=== PATIENT | male | born 1950 | race African-American/Black ===

== ENCOUNTER 2020-12-09 13:37 | Inpatient (IN) | payer MEDICARE ==
[~2020-12-09] VITALS: Ht 182.9 cm; Wt 72.6 kg
[~2020-12-09 13:37] MED LIST: AZOR 5-40 MG TA1 TAB PO; FERROUS SULFAT325 MG PO; FLOMAX0.4 MG PO; PRINIVIL20 MG PO; PROTONIX40 MG PO; TOPROL XL25 MG PO
[2020-12-09 16:42] VITALS: BP 139/95; BMI 21.7
--- NOTE | 2020-12-09 19:30 | NUR ---
AWAKE AND ALERT. RESTING IN BED WITH RESPRIATIONS UNLABORED. NO DISTRESS NOTED. CALL LIGHT IN REACH.
[2020-12-09 19:33] VITALS: BP 139/95
--- NOTE | 2020-12-10 05:07 | NUR ---
QUIET HOURS. NO ACUTE CHANGES IN CONDITION THIS SHIFT. RESTING IN BED WITH NO DISTRESS NOTED. CALL LIGHT IN REACH.
[2020-12-10 07:40] VITALS: BP 124/82
[2020-12-10 14:03] VITALS: BMI 21.7
--- NOTE | 2020-12-10 16:36 | RHP ---
PATIENT: GILES RAMOS MEDICAL RECORD: [id number] ACCOUNT: [id number] LOCATION:[id number] : 46 ADMISSION DATE: 12/09/20 REHABILITATION HISTORY AND PHYSICAL EXAMINATION POST ADMISSION PHYSICIAN EXAMINATION ADMITTING DIAGNOSIS: Toxic myopathy. HISTORY OF PRESENT ILLNESS: The patient is a gentleman who is admitted with toxic myopathy, acute, secondary to chemotherapy for relapse of prostate cancer. He is a 70-year-old gentleman resides at home with his niece, moved here from [place] to take care of him 2 years ago. He has been in remission until about 2 months ago and they had a relapse. He has been undergoing chemotherapy, both oral and injectable. Over the past month, he has become weaker and weaker to the point that he cannot stand on his own. He is independent with ADLs and he has been having problems with some incontinence of urine at times, problems bathing, problems getting up and around. He has had some incontinence since his stroke in 1980 that has worsened over time. He has got proximal muscle weakness, right greater than left. He has got some problems with his right foot, which externally rotates. His blood pressure has not been well controlled during his stay. He states that maybe some of these medications have been stopped secondary to chemotherapy and not restarted. They just increased his losartan. They have been monitoring this closely. He will need both physical and occupational therapy. Initial labs will be drawn. He is a high fall risk. He has fallen 4 times the last 2 months. He will need dietary supplementation and monitor his pain control, decreased activity tolerance, decreased strength, proximal muscle weakness, balance deficits, decreased range of motion, gait disturbance and high fall risk. These are all barriers to his discharge home. He will require all this therapy along with physician and nursing management to get back to his prior level of functioning. COMORBIDITIES: Include BPH, chronic anemia, chronic back pain, chronic pain, debility, decreased mobility, decreasing physical functioning, decrease in walking, right-sided weakness, safety, urinary incontinence, urinary retention. PAST MEDICAL HISTORY: Significant for CVA, hypertension, iron-deficiency anemia, prostate cancer, kidney mass, weight loss, spastic bladder, BPH, urinary retention, gastroesophageal reflux disease. PAST SURGICAL HISTORY: Includes a TURP. He has had a left nephrectomy and back surgery. ALLERGIES: SULFA. CURRENT MEDICATIONS: Include Procardia 30 mg daily, he is on Zyloprim 100 mg daily, he is on losartan 100 mg daily, atorvastatin 40 mg daily, Protonix 40 mg daily. He is on Xtandi, which is his own medication for chemotherapy. He is on [place] 1 tab every 4 to 6 hours p.r.n. pain and MiraLax. HABITS: No alcohol or tobacco use. FAMILY HISTORY: Noncontributory. SOCIAL HISTORY: The patient hopes to return back home and get back to his prior level of functioning. HISTORY AND PHYSICAL [id number] GILES RAMOS REVIEW OF SYSTEMS: GENERAL: He does complain of weakness and fatigue. HEENT: Denies cold, cough or congestion. CARDIOVASCULAR: Denies any chest pain. PHYSICAL EXAMINATION: VITAL SIGNS: Stable, afebrile. GENERAL: An elderly gentleman in no acute distress upon exam. HEENT: Normocephalic and atraumatic. Mucosa moist. NECK: Supple with no lymphadenopathy. LUNGS: Clear at this time. No wheezing or rales. HEART: Regular rate and rhythm. No murmurs, rubs or gallops. ABDOMEN: Soft, benign, nondistended. Positive bowel sounds times 4. EXTREMITIES: No clubbing, cyanosis or edema. NEUROLOGIC: He does have diffuse weakness. LABORATORY DATA: Pending at this time. ASSESSMENT: This is a 70-year-old gentleman admitted to the rehab with a working diagnosis of toxic myopathy. The patient has potential to make improvement. We instituted the following multidisciplinary therapies including, not limited to physical, occupational, respiratory, speech, nutritional services, prosthetics and orthotics. Given his complex medical condition and risks for more complications, rehabilitation services cannot be provided at a low level of care such as senior care facility. PLAN: 1. Admit to [facility] for inpatient therapy to include the following disciplines; A. Physical therapy to improve gait, all transfer skills and bed mobility to a modified independent level. B. Occupational therapy to improve activities of daily living. C. Case management to help with discharge planning and placement options. D. Nutrition to assist with nutritional needs. E. Rehabilitation nursing to assist in monitoring the patient's underlying medical condition and to assist with any type of bowel or bladder management. 2. The patient's current medication and Medicare will be continued. 3. Placed on standard fall precautions. 4. The patient's estimated length of stay is approximately 7-10 days. 5. Discuss this patient during care team staff meeting tomorrow. We will be waiting on his initial lab work and we will treat any abnormalities as indicated. TRANSINT:[id number] Voice Confirmation ID: [id number] DOCUMENT ID: [id number] MARYANN notes whether there has been none or any medical/functional change since admission: - MARYANN attests patient continues to be appropriate for IRF: - HISTORY AND PHYSICAL [id number] GILES RAMOS,RENEE HATCH MD at 1636 CC: [id number] DICTATION DATE: 12/10/20 1509 NEW ACCOUNTS CLERK: 12/10/20 1546 ADM IN [place] [id number] [place] [id number]
[2020-12-10 20:32] VITALS: BP 143/65
--- NOTE | 2020-12-11 01:56 | NUR ---
RECIEVED PATIENT IN BED, ALERT AND ORIENTED, WATCHING TV, CALL LIGHT IN REACH, SIDERAILS UP X 2 , BED IN LOW POSITION AND LOCKED, NO DISTRESS NOTED, NO DISTRESS NOTED.
[2020-12-11 08:05] VITALS: BP 130/90
--- NOTE | 2020-12-11 16:19 | NUR ---
CARE TEAM MEETING: PATIENT IS NEW TO UNIT AND WILL BE RA AT NEXT MEETING.DR. CHOWDARY IS HIS PCP. AT DISCHARGE PATIENT WILL NEED A HOSPITAL BED WITH TRAPEZE, GRAB BARS, HAND HELD SHOWER , SHOWER CHAIR , A POWER WHEELCHAIR, INCONT. SUPPLIES , BRIEFS, WIPES AND GLOVES ORDER FROM [facility]. WILL CONTINUE TO FOLLOW WITH PATIENT.
--- NOTE | 2020-12-11 18:50 | NUR ---
BEDSIDE REPORT COMPLETE. RECEIVED PT LYING IN BED. ALERT AND ORIENTED X4. DENIES ANY NEEDS OR PAIN. NO DISTRESS NOTED. NO IV OR OXYGEN NOTED. CALL LIGHT AND URINAL WITHIN REACH. FALL PRECAUTIONS IN PLACE. ALEXANDER AND BED ALARM ON. CPOC
[2020-12-11 19:30] VITALS: BP 163/86
[2020-12-11 20:40] VITALS: BP 168/86
--- NOTE | 2020-12-12 00:37 | NUR ---
PT LYING IN BED EYES CLOSED RESTING. RR EVEN AND UNLABORED. EMPTIED 200ML YELLOW URINE FROM URINAL. CALL LIGHT AND URINAL WITHIN REACH. BED ALARM ON.
--- NOTE | 2020-12-12 04:23 | NUR ---
PT LYING IN BED ON RIGHT SIDE EYES CLOSED RESTING. RR EVEN AND UNLABORED. URINAL EMPTIED 300ML CLEAR YELLOW URINE. BED ALARM ON
[2020-12-12 07:56] VITALS: BP 125/82
--- NOTE | 2020-12-12 08:00 | NUR ---
PT RESTING IN BED WITH EYES OPEN CALL LIGHT IN REACH WILL MONITER
--- NOTE | 2020-12-12 18:25 | NUR ---
PT RESTING IN BED WITH EYES OPEN CALL LIGHT IN REACH WILL MONITER
--- NOTE | 2020-12-12 18:40 | NUR ---
BEDSIDE REPORT COMPLETE. RECEIVED PT SITTING UP IN BED. ALERT AND ORIENTED X3. DENIES ANY NEEDS OR PAIN. NO DISTRESS NOTED. CALL LIGHT AND WATER WITHIN REACH. URINAL AT BEDSIDE. ALEXANDER ALARM ON. CPOC
[2020-12-12 21:43] VITALS: BP 122/58
--- NOTE | 2020-12-13 01:55 | NUR ---
PT LYING IN BED ON LEFT SIDE EYES CLOSED RESTING. RR EVEN AND UNLABORED. CALL LIGHT WITHIN REACH. ALEXANDER ALARM ON
--- NOTE | 2020-12-13 07:25 | NUR ---
PT IN THERAPY GYM PARTICIPATING WITH MARY KATE FOR PHYSICAL THERAPY. DENIES ANY NEEDS OR PAIN. NO DISTRESS NOTED.
[2020-12-13 07:48] VITALS: BP 111/83
--- NOTE | 2020-12-13 08:00 | NUR ---
PT RESTING IN BED WITH EYES OPEN CALL LIGHT IN REACH WILL MONITER
[2020-12-13 08:10] LABS: BASOPHILS 0.2 % (0-2); EOSINOPHILS 6.2 % (0-7); HEMATOCRIT 35.1 % (42.0-54.0); HEMOGLOBIN 11.3 g/dL (13.5-17.5); IMMATURE GRANULOCYTES 0.2 % (0-5); LYMPHOCYTE ABS# 2.34 10x3/uL (1.32-3.57); MCH 23.6 pg (26.0-34.0); MCHC 32.2 g/dL (31.0-37.0); MCV 73.3 fL (80.0-100.0); MONOCYTES 7.6 % (2-11); NEUTROPHILS 48.8 % (40-80); PLATELET COUNT 227 10x3/uL (130-400); RBC 4.79 10x6/uL (4.20-6.10); RDW 17.2 % (11.5-14.5); WBC 6.3 10x3/uL (4.8-10.8)
[2020-12-13 08:33] LABS: ANION GAP 18.4 mmol/L (8-16); CALCIUM 9.2 mg/dL (8.5-10.1); CARBON DIOXIDE 18.6 mmol/L (21.0-32.0); CREATININE - SERUM 2.3 mg/dL (0.6-1.3)
--- NOTE | 2020-12-13 12:25 | NUR ---
Nutrition follow-up: Diet: Regular Dental Soft/Chopped meats PO intake: 75% Last BM: none recorded since admit Wt: 160# (12/10/20) Meds reviewed Labs noted: BUN 42(H), Cr 2.3(H), GFR 36(L), Glu 120(H) Recommend continue current diet/or per GREASE REFINER OPERATOR recommendations. RD will follow-up 12/18/20.
--- NOTE | 2020-12-13 14:16 | NUR ---
I have reviewed this patient and I concur with the Shift Assessment completed by the Licensed Practical Nurse today this shift.
--- NOTE | 2020-12-13 19:20 | NUR ---
AWAKE AND ALERT. RESTING IN BED WITH RESPIRAITONS UNLABORED. NO DISTRESS NOTED. CALL LIGHT IN REACH.
[2020-12-13 19:34] VITALS: BP 126/81
--- NOTE | 2020-12-14 06:22 | NUR ---
QUIET HOURS. NO ACUTE CHANGES IN CONDITION THIS SHIFT. NO DISTRESS NOTED. CALL LIGHT IN REACH.
[2020-12-14 07:00] VITALS: BP 137/90
--- NOTE | 2020-12-14 08:00 | NUR ---
SHIFT ASSMT COMPLETED.CL IN REACH
--- NOTE | 2020-12-14 12:00 | NUR ---
EATING LUNCH ON SIDE OF BED.
[2020-12-14 19:25] VITALS: BP 122/71
--- NOTE | 2020-12-14 19:28 | NUR ---
AWAKE AND ALERT. RESTING IN BED WITH RESPIRATIONS UNLABORED. C/I DIARRHEA AND REQUEST SOMETHING TO STOP IT. WILL FOLLOW UP. NO ACUTE DISTRESS NOTED. CALL LIGHT IN REACH.
--- NOTE | 2020-12-15 05:09 | NUR ---
QUIET HOURS. NO ACUTE CHANGES IN CONDITION THIS SHIFT. RESTING IN BED WITH NO DISTRESS NOTED.
[2020-12-15 08:00] VITALS: BP 155/101
[2020-12-15 19:00] VITALS: BP 132/84
--- NOTE | 2020-12-15 19:41 | NUR ---
AWAKE AND ALERT. RESTING IN BED WITH RESIRATIONS UNLABORED. NO ACUTE DISTRESS NOTED. CALL LIGHT IN REACH.
--- NOTE | 2020-12-16 06:22 | NUR ---
QUIET HOURS. NO ACUTE CHANGES IN CONDITION THIS SHIFT. RESTING IN BED WITH NO DISTRESS NOTED.
[2020-12-16 08:30] VITALS: BP 133/91
[2020-12-16 10:33] LABS: BASOPHILS 0.1 % (0-2); EOSINOPHILS 6.1 % (0-7); HEMOGLOBIN 10.7 g/dL (13.5-17.5); IMMATURE GRANULOCYTES 0.1 % (0-5); LYMPHOCYTE ABS# 2.35 10x3/uL (1.32-3.57); LYMPHOCYTES 34.9 % (15-50); MCH 23.6 pg (26.0-34.0); MCHC 32.4 g/dL (31.0-37.0); MCV 72.8 fL (80.0-100.0); MONOCYTES 7.9 % (2-11); NEUTROPHIL ABS# 3.43 10x3/uL (1.78-5.38); NEUTROPHILS 50.9 % (40-80); PLATELET COUNT 248 10x3/uL (130-400); RBC 4.53 10x6/uL (4.20-6.10); RDW 17.3 % (11.5-14.5); WBC 6.7 10x3/uL (4.8-10.8)
[2020-12-16 10:44] LABS: ANION GAP 17.1 mmol/L (8-16); CALCIUM 9.1 mg/dL (8.5-10.1); CARBON DIOXIDE 20.6 mmol/L (21.0-32.0); CREATININE - SERUM 2.4 mg/dL (0.6-1.3); POTASSIUM - SERUM 5.7 mmol/L (3.5-5.1)
--- NOTE | 2020-12-16 13:27 | NUR ---
SITTING UP IN WC IN ROOM WATCHING TV. DENIES PAIN OR NEEDS. POOR BALANCE NOTED. IS INCONT OF URINE. CALL LIGHT IN REACH
--- NOTE | 2020-12-16 18:49 | NUR ---
BEDSIDE REPORT COMPLETE. RECEIVED PT LYING IN BED. ALERT AND ORIENTED X4. DENIES ANY NEEDS OR PAIN. NO DISTRESS NOTED. NO IV OR OXYGEN. CALL LIGHT AND WATER WITHIN REACH. ALEXANDER ALARM ON. CPOC
[2020-12-16 21:25] VITALS: BP 168/84
--- NOTE | 2020-12-17 00:42 | NUR ---
PT LYING IN BED ON RIGHT SIDE EYES CLOSED RESTING. RR EVEN AND UNLABORED. ALEXANDER ALARM ON
--- NOTE | 2020-12-17 04:04 | NUR ---
PT LYING IN BED AWAKE. DENIES ANY NEEDS OR PAIN. 200ML URINE EMPTIED FROM URINAL. PT IS CLEAN AND DRY. ALEXANDER ALARM ON
[2020-12-17 07:46] VITALS: BP 118/82
--- NOTE | 2020-12-17 10:53 | NUR ---
PATIENT IS A CLIENT OF NAE AT HOME.
--- NOTE | 2020-12-17 18:45 | NUR ---
BEDSIDE REPORT COMPLETE. RECEIVED PT SITTING UP IN BED. ALERT AND ORIENTED X4. DENIES ANY NEEDS OR PAIN. NO DISTRESS NOTED. CALL LIGHT AND URINAL WITHIN REACH. ALEXANDER ALARM ON. CPOC
[2020-12-17 20:28] VITALS: BP 146/83
--- NOTE | 2020-12-18 02:13 | NUR ---
PT LYING IN BED EYES CLOSED RESTING. RR EVEN AND UNLABORED. ALEXANDER ALARM ON
--- NOTE | 2020-12-18 06:24 | NUR ---
PT WALKING IN HALLS WITH MARY KATE. NO DISTRESS NOTED. DENIES ANY NEEDS OR PAIN.
[2020-12-18 07:38] VITALS: BP 121/79
--- NOTE | 2020-12-18 08:00 | NUR ---
SHIFT ASSMT COMPLETED
[2020-12-18 08:11] LABS: BASOPHILS 0.1 % (0-2); EOSINOPHILS 6.1 % (0-7); HEMOGLOBIN 11.3 g/dL (13.5-17.5); IMMATURE GRANULOCYTES 0.1 % (0-5); LYMPHOCYTE ABS# 3.01 10x3/uL (1.32-3.57); LYMPHOCYTES 43.4 % (15-50); MCH 23.6 pg (26.0-34.0); MCHC 31.4 g/dL (31.0-37.0); MCV 75.2 fL (80.0-100.0); MONOCYTES 8.2 % (2-11); NEUTROPHIL ABS# 2.92 10x3/uL (1.78-5.38); NEUTROPHILS 42.1 % (40-80); PLATELET COUNT 202 10x3/uL (130-400); RBC 4.79 10x6/uL (4.20-6.10); RDW 17.7 % (11.5-14.5); WBC 6.9 10x3/uL (4.8-10.8)
[2020-12-18 08:14] LABS: ANION GAP 20.1 mmol/L (8-16); CALCIUM 9.3 mg/dL (8.5-10.1); CARBON DIOXIDE 16.9 mmol/L (21.0-32.0); CREATININE - SERUM 2.1 mg/dL (0.6-1.3)
--- NOTE | 2020-12-18 14:04 | NUR ---
Nutrition Re-Assessment Diet: Regular Dental Soft/Chopped Meats PO intake: 75-100% x 9 meals; reports good appetite Last BM: 12/18/20 Wt: 160# (12/10/20) Meds noted: veltassa Labs noted: K 6.0(H), BUN 44(H), Cr 2.1(H), GFR 40(L) Estimated nutrition needs: [id number] cheryl (25-30 IBW), 44-58gms protein (0.6-0.8), 2025-2425mL fluid (or per MD) Nutrition diagnosis: Altered nutrition related lab values r/t kidney dysfunction AEB K 6.0, BUN 44, Cr 2.1, and GFR 40. Nutrition Goals: -PO intake =/>75% meals -Dry weight stable DHS -Potassium to trend WNL Recommendations/Interventions: -Will change diet to low potassium. -Recommend MD to draw PO4 labs. If PO4 elevated will change to Renal diet. -Will continue to honor food preferences within diet restrictions. -RD will follow-up 12/23/20.
--- NOTE | 2020-12-18 16:09 | NUR ---
CARE TEAM MEETING: PATIENT IS PROGRESSING IN THERAPY. HIS TENATIVE DC DATE IS 12/24/20. DISCHARGE PLANS ARE FOR HIM TO RETURN TO HIS HOME. WILL CONTINUE TO FOLLOW WITH PATIENT.
[2020-12-18 20:30] VITALS: BP 142/77
--- NOTE | 2020-12-18 23:31 | NUR ---
PT IN BED, NO IMMEDIATE NEEDS NOTED, FLUIDS/CL WITHIN REACH, PRECAUTIONS IN PLACE
[2020-12-19 07:45] LABS: CALCIUM 9.5 mg/dL (8.5-10.1); CARBON DIOXIDE 21.4 mmol/L (21.0-32.0); CREATININE - SERUM 2.3 mg/dL (0.6-1.3)
[2020-12-19 07:46] LABS: POTASSIUM - SERUM 6.4 mmol/L (3.5-5.1)
[2020-12-19 08:14] VITALS: BP 144/90
--- NOTE | 2020-12-19 19:30 | NUR ---
RECEIVED PATIENT SITTING IN THE WHEELCHAIR IN HIS ROOM. ALERT AND ORIENTED X4. RLE ELEVATED AND DRESSING CDI. RATES PAIN A 7/10 TO RIGHT FOOT/LEG. CALM AND COOPERAIVE. ASSISTED TO BATHROOM AND PATIENT TRANSFERRED SELF TO TOILET. DENIES NEEDS AT THIS TIME.
--- NOTE | 2020-12-19 19:40 | NUR ---
ASSISTED PATIENT BACK TO WHEELCHAIR AND THEN TO BED. HAD BM. RELATED HE WOULD LIKE HIS PERCOCET 10 AND VISTARIL 50MG WITH HIS HS MEDS BUT DOES NOT WANT THE TRAZADONE BECAUSE THE PAIN MEDICATION WILL HELP HIM SLEEP.
--- NOTE | 2020-12-19 20:17 | NUR ---
HS MEDS ADMINISTERED WITHOUT DIFFICULTY. CURRENTLY RATES PAIN 6/10 SINCE LYING DOWN. CALL LIGHT WITHIN REACH. TALKING ON THE TELEPHONE AND DENIES NEEDS.
[2020-12-19 20:36] VITALS: BP 136/73
--- NOTE | 2020-12-19 21:06 | NUR ---
HS MEDS ADMINISTERED WITHOUT DIFFICULTY. NO C/O VOICED. CL WITHIN REACH.
--- NOTE | 2020-12-19 21:20 | NUR ---
PAIN MEDICATION EFFECTIVE. CURRENTLY RATES PAIN 3/10.
--- NOTE | 2020-12-19 22:56 | NUR ---
RECEIVED PATIENT LYING IN BED. ALERT AND ORIENTED TO PERSON, SITUATION AMD PARTIAL TIME. REPORTS REASON FOR HOSPITALIZATION IS DUE TO FALLING. DENIES PAIN. CALL LIGHT WITHIN REACH. DENIES NEEDS.
--- NOTE | 2020-12-19 23:03 | NUR ---
PT REQUESTED A BANANA. INFORMED PATIENT NO BANANAS ON THE UNIT. VANILLA ICE CREAM TAKEN TO PATIENT. DENIES FURTHER NEEDS. CL WITHIN REACH.
[2020-12-20 08:04] LABS: BASOPHILS 0.1 % (0-2); EOSINOPHILS 7.2 % (0-7); HEMATOCRIT 33.5 % (42.0-54.0); HEMOGLOBIN 10.9 g/dL (13.5-17.5); IMMATURE GRANULOCYTES 0.1 % (0-5); LYMPHOCYTE ABS# 3.07 10x3/uL (1.32-3.57); MCH 23.8 pg (26.0-34.0); MCHC 32.5 g/dL (31.0-37.0); MCV 73.1 fL (80.0-100.0); MONOCYTES 7.9 % (2-11); NEUTROPHIL ABS# 2.84 10x3/uL (1.78-5.38); NEUTROPHILS 40.7 % (40-80); RBC 4.58 10x6/uL (4.20-6.10); RDW 17.3 % (11.5-14.5)
[2020-12-20 08:05] LABS: PLATELET COUNT 262 10x3/uL (130-400)
[2020-12-20 08:10] LABS: ANION GAP 15.7 mmol/L (8-16); CALCIUM 9.6 mg/dL (8.5-10.1); CARBON DIOXIDE 20.7 mmol/L (21.0-32.0); CREATININE - SERUM 2.5 mg/dL (0.6-1.3)
[2020-12-20 08:11] VITALS: BP 128/74
[2020-12-20 08:12] LABS: POTASSIUM - SERUM 5.4 mmol/L (3.5-5.1)
--- NOTE | 2020-12-20 13:21 | NUR ---
SITTING UP IN WC IN ROOM. ALERT AND ORIENTED WITH SOFT SPEECH. DENIES PAIN. POOR BALANCE NOTED. INCONT OF URINE, WEARS BRIEFS. CALL LIGHT IN REACH
[2020-12-20 13:29] VITALS: Ht 182.9 cm; Wt 72.6 kg
--- NOTE | 2020-12-20 18:53 | NUR ---
BEDSIDE REPORT COMPLETE. RECEIVED PT LYING IN BED. ALERT AND ORIENTED X4. DENIES ANY NEEDS OR PAIN. CALL LIGHT AND WATER WITHIN REACH. ALEXANDER ALARM ON. CPOC
[2020-12-20 21:20] VITALS: BP 145/88
--- NOTE | 2020-12-21 03:16 | NUR ---
PT LYING IN BED ON RIGHT SIDE EYES CLOSED RESTING. RR EVEN AND UNLABORED. CALL LIGHT WITHIN REACH. ALEXANDER ALARM ON.
--- NOTE | 2020-12-21 05:36 | NUR ---
PT LYING IN BED ON RIGHT SIDE EYES CLOSED RESTING. RR EVEN AND UNLABORED. NO ACUTE CHANGES IN CONDITION THIS SHIFT. CALL LIGHT AND URINAL WITHIN REACH. ALEXANDER ALARM ON.
[2020-12-21 08:00] VITALS: BP 131/84
[2020-12-21 08:11] LABS: ANION GAP 16.6 mmol/L (8-16); CALCIUM 9.3 mg/dL (8.5-10.1); CARBON DIOXIDE 21.1 mmol/L (21.0-32.0); CREATININE - SERUM 2.3 mg/dL (0.6-1.3); POTASSIUM - SERUM 5.7 mmol/L (3.5-5.1)
--- NOTE | 2020-12-21 10:50 | NUR ---
SITTING IN WC IN ROOM. HAS BEEN UP SINCE BREAKFAST TALKING WITH STAFF AND MILLING AROUND IN WC. DENIES PAIN OR SOB. INCONT OF URINE. CALL LIGHT IN REACH
--- NOTE | 2020-12-21 18:42 | NUR ---
BEDSIDE REPORT COMPLETE. RECEIVED PT LYING IN BED. ALERT AND ORIENTED X3. DENIES ANY NEEDS OR PAIN. NO DISTRESS NOTED. CALL LIGHT AND WATER WITHIN REACH. ALEXANDER ALARM ON. CPOC
[2020-12-21 19:00] VITALS: BP 128/68
--- NOTE | 2020-12-22 01:45 | NUR ---
PT LYING IN BED EYES CLOSED RESTING. RR EVEN AND UNLABORED. CALL LIGHT WITHIN REACH. ALEXANDER ALARM ON
--- NOTE | 2020-12-22 05:17 | NUR ---
PT LYING IN BED AWAKE. DENIES ANY NEEDS OR PAIN. NO DISTRESS NOTED. EARLY AM MEDS ADMININSTERED WITHOUT DIFFICULTY. NO ACUTE CHANGES IN CONDITION THIS SHIFT. CALL LIGHT AND WATER WITHIN REACH. ALEXANDER ALARM ON
[2020-12-22 08:00] VITALS: BP 127/77
--- NOTE | 2020-12-22 10:17 | NUR ---
SITTING UP IN WC IN ROOM WATCHING TV. INCONT OF URINE. WEARS BRIEFS. CONT OF BOWEL. DENIES PAIN. BED AND CHAIR ALARM IN PLACE. CALL LIGHT IN REACH
[2020-12-22 19:00] VITALS: BP 132/82
--- NOTE | 2020-12-22 23:55 | NUR ---
PT LYING IN BED SUPINE EYES OPEN. NO DISTRESS NOTED. DENIES ANY NEEDS. CALL LIGHT WITHIN REACH. ALEXANDER ALARM ON
--- NOTE | 2020-12-23 03:30 | NUR ---
PT CALLED REQUESTING SHOWER. ASSISTED PT WITH SHOWER MIN ASSIST. PT WAS ABLE TO WASH ALL BODY PARTS EXCEPT BACK. ASSISTED WITH LOWER BODY DRESSING. COMPLETE BED LINEN CHANGE. NO OTHER NEEDS VOICED. CALL LIGHT WITHIN REACH. ALEXANDER ALARM ON.
[2020-12-23 07:57] VITALS: BP 117/75
[2020-12-23 08:19] LABS: BASOPHILS 0.1 % (0-2); EOSINOPHILS 6.6 % (0-7); HEMATOCRIT 33.7 % (42.0-54.0); HEMOGLOBIN 10.8 g/dL (13.5-17.5); IMMATURE GRANULOCYTES 0.3 % (0-5); LYMPHOCYTES 42.6 % (15-50); MCH 23.3 pg (26.0-34.0); MCV 72.8 fL (80.0-100.0); MONOCYTES 7.3 % (2-11); NEUTROPHIL ABS# 3.13 10x3/uL (1.78-5.38); NEUTROPHILS 43.1 % (40-80); PLATELET COUNT 242 10x3/uL (130-400); RBC 4.63 10x6/uL (4.20-6.10); RDW 17.4 % (11.5-14.5); WBC 7.3 10x3/uL (4.8-10.8)
[2020-12-23 08:26] LABS: ANION GAP 17.9 mmol/L (8-16); CALCIUM 9.7 mg/dL (8.5-10.1); CARBON DIOXIDE 19.2 mmol/L (21.0-32.0); CREATININE - SERUM 2.5 mg/dL (0.6-1.3); POTASSIUM - SERUM 5.1 mmol/L (3.5-5.1)
[2020-12-23] MEDS ORDERED: SODIUM BICARBO325 MG PO (08:34)
[2020-12-23] MEDS ORDERED: VELTASSA8.4 GM PO (08:34)
[2020-12-23] MEDS ORDERED: Procardia XL PO (08:34)
[2020-12-23] MEDS ORDERED: ZYLOPRIM100 MG PO (08:34)
--- NOTE | 2020-12-23 19:40 | NUR ---
AWAKE AND ALERT. RESTING IN BED WITH RESPIRATIONS UNLABORED. NO DISTRESS NOTED. CALL LIGHT IN REACH.
[2020-12-23 19:58] VITALS: BP 130/81
--- NOTE | 2020-12-24 05:27 | NUR ---
QUIET HOURS. NO ACUTE CHANGES IN CONDITION THIS SHIFT. RESTING IN BED WITH NO DISTRESS NOTED.
[2020-12-24 07:34] VITALS: BP 122/84
--- NOTE | 2020-12-24 08:00 | NUR ---
SHIFT ASSMT COMPLETED.CL IN REACH.
--- NOTE | 2020-12-24 08:53 | NUR ---
Nutrition Follow-up: Diet: 75% most meals Last BM: 12/19/20 Wt: 160# (12/10/20) Meds reviewed Labs noted: K 5.1(WNL), BUN 52(H), Cr 2.5(H), GFR 33(L) Recommend contiue current diet. RD will follow-up within 7 days.
--- NOTE | 2020-12-24 10:42 | NUR ---
PATIENT DISCHARGED HOME TODAY WITH FAMILY. [facility] AT HOME WILL RESUME THERAPY AT HOME. DAUGHTER HAS ARRANGED FOR DME TO BE DELIVERED. DR. COLEMAN 12/31/20 @ 1:00, DR. GRAVES 01/08/21 @ 2:10. PATRICIA SIGNED, IMM SERVED ANEND EXPLAINED, ONE GIVEN TO PATIENT AND ONE FILED IN CHART.NO COMPARE DATA REVIEWED. DISCHARGE INSTUCTIONS FAXED TO PCP, HOME HEALTH AND REVIEWED WITH PATIENT AND DAUGHTER.
--- NOTE | 2020-12-24 12:00 | NUR ---
EATING LUNCH.WAITING ON RIDE.DISCHARGING TODAY.REVIEWED MEDS AND APPTS.
--- NOTE | 2020-12-24 13:05 | NUR ---
DISCHARGED TO HOME.
== END 2020-12-24 13:05 | disposition home health service (06) | DRG 92 ==
LOC: D.REHAB 13:37
PROVIDERS: Internal Medicine Nephrology; ADMIT Emergency Medicine; ATTEND Emergency Medicine
DX: G72.2 Myopathy due to other toxic agents (principal); N18.4 Chronic kidney disease, stage 4 (severe); N40.0 Benign prostatic hyperplasia without lower urinary tract symptoms; D64.9 Anemia, unspecified; M54.5 Low back pain; G89.29 Other chronic pain; R53.81 Other malaise; R32 Unspecified urinary incontinence; R33.9 Retention of urine, unspecified; Z85.46 Personal history of malignant neoplasm of prostate; K21.9 Gastro-esophageal reflux disease without esophagitis; R26.2 Difficulty in walking, not elsewhere classified; R53.83 Other fatigue; I12.9 Hypertensive chronic kidney disease with stage 1 through stage 4 chronic kidney disease, or unspecified chronic kidney disease

== ENCOUNTER 2021-02-10 11:22 | Inpatient (IN) | payer MEDICARE ==
[~2021-02-10] VITALS: Ht 182.9 cm; Wt 70.8 kg
[~2021-02-10 11:22] MED LIST changes: +Procardia XL PO; +SODIUM BICARBO325 MG PO; +VELTASSA8.4 GM PO; +ZYLOPRIM100 MG PO
[2021-02-10 12:38] LABS: ANION GAP 20.2 mmol/L (8-16); CALCIUM 9.5 mg/dL (8.5-10.1); CARBON DIOXIDE 17.9 mmol/L (21.0-32.0); CREATININE - SERUM 4.3 mg/dL (0.6-1.3); POTASSIUM - SERUM 5.1 mmol/L (3.5-5.1)
[2021-02-10 12:41] LABS: ALBUMIN 3.1 g/dL (3.4-5.0); BILIRUBIN - TOTAL 0.78 mg/dL (0.2-1.3); PROTEIN - SERUM 7.9 g/dL (6.4-8.2)
[2021-02-10 12:58] LABS: BASOPHILS 0.1 % (0-2); EOSINOPHILS 0.2 % (0-7); HEMATOCRIT 35.7 % (42.0-54.0); HEMOGLOBIN 10.7 g/dL (13.5-17.5); LYMPHOCYTES 10.6 % (15-50); MCH 23.6 pg (26.0-34.0); MCHC 30.1 g/dL (31.0-37.0); MCV 78.5 fL (80.0-100.0); MEAN PLATELET VOLUME 9.2 fL (7.4-10.4); MONOCYTES 7.7 % (2-11); NEUTROPHILS 81.4 % (40-80); RBC 4.55 10x6/uL (4.20-6.10); RDW 17.2 % (11.5-14.5); WBC 17.6 10x3/uL (4.8-10.8)
[2021-02-10 13:03] LABS: PLATELET COUNT 154 10x3/uL (130-400)
[2021-02-10 15:47] LABS: BILIRUBIN NEGATIVE (NEGATIVE); KETONE NEGATIVE mg/dL (< 1+); NITRITE NEGATIVE (NEGATIVE); PH 5.5 (5.0-8.0); UROBILINOGEN NORMAL mg/dL (< 2)
[2021-02-10 16:09] LABS: WHITE CELLS - URINE >50 HPF (0-1)
[2021-02-10 16:10] LABS: BACTERIA MANY HPF (<MOD)
[2021-02-10 18:54] LABS: SARS-CoV-2 ANTIGEN NEGATIVE- SARS-COV-2 (NEGATIVE)
[2021-02-10 19:53] VITALS: BP 147/91
[2021-02-10] MEDS ORDERED: HYDROCODON-ACE1 EAC7 PO (21:35)
--- NOTE | 2021-02-10 23:17 | NUR ---
REPORT RECEIVED. PT A&O, UP IN BED. NO S/S OF DISTRESS OBSERVED. RR EVEN & UNLABORED ON RA. L AC SL AT THIS TIME. BED LOCKED AND LOWERED, CL IN REACH. SPOKE WITH ARUN (NIECE) WHO IS THE PRIMARY CAREGIVER. WILL CONT POC.
[2021-02-11 02:21] VITALS: BP 148/93
[2021-02-11 02:29] VITALS: BP 147/91
--- NOTE | 2021-02-11 04:49 | NUR ---
PTS IV WAS CLOTTED OF IN JLOOP AND IN IV CATHETER. RESITED TO R FA. PT TOLERATED WELL. NO S/S OF DISTRESS. WILL CONT POC.
[2021-02-11 05:46] LABS: BASOPHILS 0.2 % (0-2); EOSINOPHILS 0.2 % (0-7); HEMOGLOBIN 8.7 g/dL (13.5-17.5); LYMPHOCYTES 15.5 % (15-50); MCHC 32.8 g/dL (31.0-37.0); MEAN PLATELET VOLUME 9.4 fL (7.4-10.4); MONOCYTES 6.2 % (2-11); NEUTROPHILS 77.9 % (40-80); PLATELET COUNT 158 10x3/uL (130-400); RDW 16.8 % (11.5-14.5)
[2021-02-11 06:01] LABS: HEMATOCRIT 26.4 % (42.0-54.0); MCV 73.3 fL (80.0-100.0)
[2021-02-11 06:05] LABS: ANION GAP 18.1 mmol/L (8-16); CALCIUM 8.4 mg/dL (8.5-10.1); CARBON DIOXIDE 18.4 mmol/L (21.0-32.0); CREATININE - SERUM 4.2 mg/dL (0.6-1.3); POTASSIUM - SERUM 4.5 mmol/L (3.5-5.1)
[2021-02-11 06:06] VITALS: BP 100/62
[2021-02-11 09:00] VITALS: BP 110/61
[2021-02-11 12:35] VITALS: Ht 182.9 cm; Wt 70.8 kg
[2021-02-11 16:00] VITALS: BP 120/69
[2021-02-11 20:00] VITALS: BP 153/69
--- NOTE | 2021-02-11 20:00 | NUR ---
REPORT RECEIVED. PT A&O, UP IN BED RESTING QUIETLY. NO S/S OF DISTRESS OBSERVED. RR EVEN & UNLABORED ON RA. 20G IV TO R FA W/ D5 @75CC/HR INFUSING. PT HAD A BM ON BEDPAN AND A BOUT OF URINARY INCONTINENCE UPON ASSESSMENT. PLACED CONDOM CATH TO REDUCE LIKELIHOOD OF SORES DEVELOPING. PT ROLLED ONTO R SIDE. BED LOCKED AND LOWERED, CL IN REACH. WILL CONT POC.
[2021-02-12] VITALS (7 sets, daily range): BP systolic 119–165; BP diastolic 70–117
--- NOTE | 2021-02-12 06:37 | NUR ---
BLADDER SCAN PER DR. GRAVES, 403 ML NOTED FROM BLADDER SCAN. ORDER FROM DR. GRAVES TO PERFORM IN/OUT CATH.
[2021-02-12 06:39] LABS: ANION GAP 15.2 mmol/L (8-16); CALCIUM 8.5 mg/dL (8.5-10.1); CARBON DIOXIDE 18.9 mmol/L (21.0-32.0); CREATININE - SERUM 3.8 mg/dL (0.6-1.3); POTASSIUM - SERUM 4.1 mmol/L (3.5-5.1)
[2021-02-12 06:49] LABS: BASOPHILS 0.2 % (0-2); EOSINOPHILS 0.7 % (0-7); HEMATOCRIT 25.8 % (42.0-54.0); HEMOGLOBIN 8.4 g/dL (13.5-17.5); LYMPHOCYTES 25.9 % (15-50); MCH 23.9 pg (26.0-34.0); MCHC 32.5 g/dL (31.0-37.0); MCV 73.4 fL (80.0-100.0); MEAN PLATELET VOLUME 9.8 fL (7.4-10.4); NEUTROPHILS 67.2 % (40-80); PLATELET COUNT 162 10x3/uL (130-400); RBC 3.52 10x6/uL (4.20-6.10); RDW 16.7 % (11.5-14.5)
--- NOTE | 2021-02-12 10:48 | NUR ---
PATIENT HAD POST RESIDUAL 250ML ON BLADDER SCAN. IN AND OUT CATH PER ORDERS. MEASURED 200ML OUT.
--- NOTE | 2021-02-13 02:55 | NUR ---
REPORT RECEIVED. PT A&O, UP IN BED RESTING QUIETLY. NO S/S OF DISTRESS OBSERVED. RR EVEN & UNLABORED ON RA. IV TO L HAND NS INFUSING @ 100CC/HR. BED LOCKED AND LOWERED, CL IN REACH. WILL CONT POC.
[2021-02-13 05:24] VITALS: BP 106/84
--- NOTE | 2021-02-13 07:00 | NUR ---
Lying in bed, awake/alert/oriented, T/R self ad negin, cont of B/B with BRPs with assist ad negin, denies pain/other discomfort, call light/phone/water within reach, no s/s of acute distress observed.
[2021-02-13 08:02] LABS: BASOPHILS 0.5 % (0-2); EOSINOPHILS 0.9 % (0-7); HEMATOCRIT 28.8 % (42.0-54.0); HEMOGLOBIN 9.3 g/dL (13.5-17.5); LYMPHOCYTES 8.7 % (15-50); MCH 23.7 pg (26.0-34.0); MCHC 32.2 g/dL (31.0-37.0); MCV 73.7 fL (80.0-100.0); MEAN PLATELET VOLUME 9.8 fL (7.4-10.4); MONOCYTES 11.4 % (2-11); NEUTROPHILS 78.5 % (40-80); PLATELET COUNT 177 10x3/uL (130-400); RBC 3.91 10x6/uL (4.20-6.10); RDW 16.8 % (11.5-14.5); WBC 6.8 10x3/uL (4.8-10.8)
[2021-02-13 08:07] LABS: ANION GAP 13.4 mmol/L (8-16); CALCIUM 9.1 mg/dL (8.5-10.1); CARBON DIOXIDE 20.8 mmol/L (21.0-32.0); POTASSIUM - SERUM 4.2 mmol/L (3.5-5.1)
[2021-02-13 09:00] VITALS: BP 136/60
[2021-02-13] MEDS ORDERED: NORVASC5 MG PO (12:19)
[2021-02-13] MEDS ORDERED: LEVOFLOXACIN500 MG PO (12:21)
--- NOTE | 2021-02-13 12:24 | NUR ---
Nutrition Follow-up: Pt reports appetite is ok. Ate ~75% of breakfast this AM. Denies N/V/C/D. Diet: Renal No new wt; last wt: 156# (02/11) Last BM: 02/12 Labs noted: Na 133, K+ 4.2, BUN 52, Cre 3.0, GFR 27 Meds noted: Veltassa, Florajen, Protonix, NS @ 100 -Encourage PO intake and honor food preferences within diet restrictions. -Need new wt. -RD will follow up within 4-5 days.
--- NOTE | 2021-02-13 16:17 | NUR ---
OT NOTE: BED MOB INCLUDING ROLLING SIDE TO SIDE WITH MOD ASSIST; SUPINE TO SIT WITH MAX ASSIST; EOB SITTING FOR APPROX 5 MIN TO PERFORM UE EXS; ABLE TO WASH HANDS AND FACE WITH WASH CLOTH AND SET UP; MAX ASSIST TO ZE AND DOFF SOCKS. STEVE MAXWELL, OTR/L
== END 2021-02-13 17:43 | DRG 683 ==
LOC: D.ER 11:22 → D.EDHOLD 16:24 → D.M2 16:24
PROVIDERS: Emergency Medicine; Family Medicine; ADMIT Family Medicine; ATTEND Family Medicine
DX: I12.9 Hypertensive chronic kidney disease with stage 1 through stage 4 chronic kidney disease, or unspecified chronic kidney disease (principal); N17.9 Acute kidney failure, unspecified; N39.0 Urinary tract infection, site not specified; R78.81 Bacteremia; N18.4 Chronic kidney disease, stage 4 (severe); D63.1 Anemia in chronic kidney disease; Z86.73 Personal history of transient ischemic attack (TIA), and cerebral infarction without residual deficits; G72.89 Other specified myopathies